=== PATIENT | female | born 1955 | race Caucasian/White ===

== ENCOUNTER 2021-07-19 20:35 | Inpatient (IN) | payer MEDICARE, OTHER ==
[~2021-07-19] VITALS: Ht 165.1 cm; Wt 69.4 kg
[2021-07-19] MEDS ORDERED: AMLO-212 PO (20:55)
[2021-07-19] MEDS ORDERED: CYCL5TAB PO (20:55)
[2021-07-19] MEDS ORDERED: LEVO25TA9 PO (20:55)
[2021-07-19] MEDS ORDERED: HYDR-3972 PO (20:55)
[2021-07-19] MEDS ORDERED: LORAZEPAM 1 MG TABLET PO PRN (22:45)
[2021-07-19] MEDS ORDERED: HYDROCODONE/APAP 5-325MG TABLET PO PRN (22:45)
[2021-07-19] MEDS ORDERED: HYDROCODONE/APAP 5-325MG TABLET ONE (22:57)
[2021-07-19] MEDS ORDERED: LORAZEPAM 1 MG TABLET ONE (22:57)
[2021-07-20 00:30] VITALS: BP 120/80
[2021-07-20] MEDS ORDERED: MAG HYDROX/AL HYDROX/SIMETH 30 ML LIQUID UDC PO PRN (00:30)
[2021-07-20] MEDS ORDERED: MAGNESIUM HYDROXIDE 30 ML LIQUID UDC PO PRN (00:30)
[2021-07-20] MEDS ORDERED: LORAZEPAM 0.5 MG TABLET PO PRN ×2 (00:30→04:30)
[2021-07-20] MEDS: ACETAMINOPHEN 325 MG TABLET PO PRN ×2 (01:17→21:18)
[2021-07-20] MEDS ORDERED: CYCLOBENZAPRINE HCL 10 MG TABLET PO PRN (09:00)
[2021-07-20 09:16] VITALS: BP 132/70
[2021-07-20] MEDS: LEVOTHYROXINE SODIUM 25 MCG TABLET PO SCH (10:42)
[2021-07-20] MEDS: AMLODIPINE 5 MG TABLET PO SCH (10:44)
[2021-07-20] MEDS: HYDROCODONE/APAP 5-325MG TABLET PO PRN (15:32)
[2021-07-20 17:08] VITALS: BP 131/79
[2021-07-20 20:00] VITALS: BP 125/80
[2021-07-20] MEDS: LORAZEPAM 1 MG TABLET PO PRN (21:18)
[2021-07-20] MEDS: risperiDONE 1 MG TABLET PO SCH (21:23)
[2021-07-21] MEDS: LEVOTHYROXINE SODIUM 25 MCG TABLET PO SCH (06:14)
[2021-07-21 07:48] VITALS: BP 132/75
[2021-07-21] MEDS: risperiDONE 1 MG TABLET PO SCH ×2 (08:45→20:24)
[2021-07-21] MEDS: DIVALPROEX 250 MG TABLET.DR PO SCH ×3 (08:45→16:14)
[2021-07-21] MEDS: AMLODIPINE 5 MG TABLET PO SCH (08:45)
[2021-07-21] MEDS: HYDROCODONE/APAP 5-325MG TABLET PO PRN ×2 (09:48→20:24)
[2021-07-21 16:17] VITALS: BP 122/71
[2021-07-21 20:00] VITALS: BP 134/69
[2021-07-21] MEDS: TEMAZEPAM 7.5 MG CAPSULE PO PRN (22:03)
[2021-07-22] MEDS: LEVOTHYROXINE SODIUM 25 MCG TABLET PO SCH (06:18)
[2021-07-22 07:43] VITALS: BP 121/68
[2021-07-22] MEDS: DIVALPROEX 250 MG TABLET.DR PO SCH ×3 (08:15→17:04)
[2021-07-22] MEDS: risperiDONE 1 MG TABLET PO SCH ×2 (08:16→20:09)
[2021-07-22] MEDS: AMLODIPINE 5 MG TABLET PO SCH (08:16)
[2021-07-22] MEDS: HYDROCODONE/APAP 5-325MG TABLET PO PRN ×2 (15:31→22:59)
[2021-07-22 16:16] VITALS: BP 115/66
[2021-07-22 20:10] VITALS: BP 118/64
[2021-07-23] MEDS: LEVOTHYROXINE SODIUM 25 MCG TABLET PO SCH (06:10)
[2021-07-23] MEDS: DIVALPROEX 250 MG TABLET.DR PO SCH ×3 (09:10→17:11)
[2021-07-23] MEDS: risperiDONE 1 MG TABLET PO SCH ×2 (09:10→20:05)
[2021-07-23] MEDS: AMLODIPINE 5 MG TABLET PO SCH (09:10)
[2021-07-23 09:26] VITALS: BP 148/89
[2021-07-23 16:00] VITALS: BP 123/84
[2021-07-23] MEDS: HYDROCODONE/APAP 5-325MG TABLET PO PRN ×2 (17:11→20:49)
[2021-07-23 20:00] VITALS: BP 142/70
[2021-07-24] MEDS: LEVOTHYROXINE SODIUM 25 MCG TABLET PO SCH (06:21)
[2021-07-24 07:30] VITALS: BP 133/94
[2021-07-24] MEDS: AMLODIPINE 5 MG TABLET PO SCH (08:43)
[2021-07-24] MEDS: DIVALPROEX 250 MG TABLET.DR PO SCH ×3 (08:43→16:48)
[2021-07-24] MEDS: risperiDONE 1 MG TABLET PO SCH ×2 (08:43→20:26)
[2021-07-24] MEDS: HYDROCODONE/APAP 5-325MG TABLET PO PRN (15:57)
[2021-07-24 16:00] VITALS: BP 136/82
[2021-07-24] MEDS: LORAZEPAM 1 MG TABLET PO PRN (20:26)
[2021-07-24] MEDS: ACETAMINOPHEN 325 MG TABLET PO PRN (20:26)
[2021-07-24 20:59] VITALS: BP 107/65
[2021-07-24] MEDS: TEMAZEPAM 7.5 MG CAPSULE PO PRN (21:22)
[2021-07-25] MEDS: LEVOTHYROXINE SODIUM 25 MCG TABLET PO SCH (05:52)
[2021-07-25 07:08] LABS: HEMATOCRIT 42.5 % (31.2-41.9); MEAN CORPUSCULAR HEMOGLOBIN 30.7 uug (24.7-32.8); MEAN CORPUSCULAR VOLUME 89.5 fL (75.5-95.3); PLATELET COUNT (AUTO) 253 K/uL (179-408)
[2021-07-25 07:30] VITALS: BP_SYST 124; BP_SYST 134; BP_DIAS 75; BP_DIAS 87
[2021-07-25 08:00] LABS: ALANINE AMINOTRANSFERASE 19 U/L (14-59); ALKALINE PHOSPHATASE 132 U/L (50-136); ASPARTATE AMINOTRANSFERASE < 5 U/L (15-37); BILIRUBIN,TOTAL 0.4 mg/dL (0.2-1.0); CARBON DIOXIDE 28 mmol/L (21-32); CHLORIDE 101 mmol/L (98-107); CREATININE 0.5 mg/dL (0.6-1.3); GLUCOSE 112 mg/dL (74-106); MAGNESIUM 2.4 mg/dL (1.8-2.4); PHOSPHOROUS 4.6 mg/dL (2.5-4.9); TOTAL PROTEIN, SERUM 7.9 g/dL (6.4-8.2); UREA NITROGEN, BLOOD 9 mg/dL (7-18)
[2021-07-25 08:02] LABS: THYROID STIMULATING HORMONE 2.362 mIU/mL (0.358-3.740)
[2021-07-25] MEDS: DIVALPROEX 250 MG TABLET.DR PO SCH ×2 (08:30→13:18)
[2021-07-25] MEDS: risperiDONE 1 MG TABLET PO SCH ×2 (08:30→20:12)
[2021-07-25] MEDS: AMLODIPINE 5 MG TABLET PO SCH (08:31)
[2021-07-25] MEDS: HYDROCODONE/APAP 5-325MG TABLET PO PRN ×2 (14:23→20:13)
[2021-07-25 20:00] VITALS: BP 100/58
[2021-07-25] MEDS: DIVALPROEX 500 MG TABLET.DR PO SCH (20:11)
[2021-07-25] MEDS: ATORVASTATIN 20 MG TABLET PO SCH (20:12)
[2021-07-25] MEDS: TEMAZEPAM 7.5 MG CAPSULE PO PRN (22:25)
[2021-07-26] MEDS: HYDROCODONE/APAP 5-325MG TABLET PO PRN ×3 (04:09→20:25)
[2021-07-26] MEDS: LEVOTHYROXINE SODIUM 25 MCG TABLET PO SCH (05:56)
[2021-07-26 07:47] VITALS: BP 127/68
[2021-07-26] MEDS: DIVALPROEX 250 MG TABLET.DR PO SCH ×2 (08:40→12:14)
[2021-07-26] MEDS: risperiDONE 1 MG TABLET PO SCH ×2 (08:41→20:14)
[2021-07-26] MEDS: AMLODIPINE 5 MG TABLET PO SCH (08:42)
[2021-07-26 17:40] VITALS: BP 128/81
[2021-07-26] MEDS: DIVALPROEX 500 MG TABLET.DR PO SCH (20:14)
[2021-07-26] MEDS: ATORVASTATIN 20 MG TABLET PO SCH (20:14)
[2021-07-26 20:22] VITALS: BP 117/75
[2021-07-26] MEDS: TEMAZEPAM 7.5 MG CAPSULE PO PRN (22:31)
[2021-07-27] MEDS: LEVOTHYROXINE SODIUM 25 MCG TABLET PO SCH (06:14)
[2021-07-27 07:30] VITALS: BP 139/87
[2021-07-27] MEDS: AMLODIPINE 5 MG TABLET PO SCH (08:44)
[2021-07-27] MEDS: DIVALPROEX 250 MG TABLET.DR PO SCH ×2 (08:44→12:43)
[2021-07-27] MEDS: risperiDONE 1 MG TABLET PO SCH ×2 (08:44→21:43)
[2021-07-27] MEDS: HYDROCODONE/APAP 5-325MG TABLET PO PRN ×2 (09:15→14:00)
[2021-07-27 16:00] VITALS: BP 136/80
[2021-07-27 20:00] VITALS: BP 100/57
[2021-07-27] MEDS: DIVALPROEX 500 MG TABLET.DR PO SCH (21:43)
[2021-07-27] MEDS: ATORVASTATIN 20 MG TABLET PO SCH (21:43)
[2021-07-27] MEDS: TEMAZEPAM 7.5 MG CAPSULE PO PRN (21:43)
[2021-07-28] MEDS: LEVOTHYROXINE SODIUM 25 MCG TABLET PO SCH (06:38)
[2021-07-28] MEDS: HYDROCODONE/APAP 5-325MG TABLET PO PRN ×3 (06:38→21:59)
[2021-07-28 08:12] VITALS: BP 102/73
[2021-07-28] MEDS: risperiDONE 1 MG TABLET PO SCH ×2 (08:44→20:52)
[2021-07-28] MEDS: DIVALPROEX 250 MG TABLET.DR PO SCH ×2 (08:44→13:45)
[2021-07-28] MEDS: AMLODIPINE 5 MG TABLET PO SCH (08:46)
[2021-07-28 17:01] VITALS: BP 133/80
[2021-07-28 20:14] VITALS: BP 146/81
[2021-07-28] MEDS: DIVALPROEX 500 MG TABLET.DR PO SCH (20:52)
[2021-07-28] MEDS: ATORVASTATIN 20 MG TABLET PO SCH (20:52)
[2021-07-29] MEDS: TEMAZEPAM 7.5 MG CAPSULE PO PRN ×2 (01:23→23:52)
[2021-07-29] MEDS: LEVOTHYROXINE SODIUM 25 MCG TABLET PO SCH (06:24)
[2021-07-29 08:04] VITALS: BP 138/86
[2021-07-29] MEDS: DIVALPROEX 250 MG TABLET.DR PO SCH ×2 (08:16→12:36)
[2021-07-29] MEDS: risperiDONE 1 MG TABLET PO SCH ×2 (08:16→20:52)
[2021-07-29] MEDS: AMLODIPINE 5 MG TABLET PO SCH (08:16)
[2021-07-29] MEDS: HYDROCODONE/APAP 5-325MG TABLET PO PRN ×2 (11:11→21:59)
[2021-07-29 16:11] VITALS: BP 141/82
[2021-07-29 20:18] VITALS: BP 117/62
[2021-07-29] MEDS: DIVALPROEX 500 MG TABLET.DR PO SCH (20:52)
[2021-07-29] MEDS: ATORVASTATIN 20 MG TABLET PO SCH (20:52)
[2021-07-30] MEDS: LEVOTHYROXINE SODIUM 25 MCG TABLET PO SCH (06:01)
[2021-07-30] MEDS: HYDROCODONE/APAP 5-325MG TABLET PO PRN ×4 (06:49→21:29)
[2021-07-30 08:00] VITALS: BP 141/80
[2021-07-30] MEDS: DIVALPROEX 250 MG TABLET.DR PO SCH ×2 (09:16→13:06)
[2021-07-30] MEDS: risperiDONE 1 MG TABLET PO SCH ×2 (09:16→20:37)
[2021-07-30] MEDS: AMLODIPINE 5 MG TABLET PO SCH (09:16)
[2021-07-30 16:48] VITALS: BP 105/61
[2021-07-30 20:17] VITALS: BP 125/76
[2021-07-30] MEDS: DIVALPROEX 500 MG TABLET.DR PO SCH (20:34)
[2021-07-30] MEDS: ATORVASTATIN 20 MG TABLET PO SCH (20:37)
[2021-07-30] MEDS: TEMAZEPAM 7.5 MG CAPSULE PO PRN (21:29)
[2021-07-31] MEDS: LORAZEPAM 1 MG TABLET PO PRN ×2 (05:22→15:09)
[2021-07-31] MEDS: ACETAMINOPHEN 325 MG TABLET PO PRN ×2 (05:22→20:25)
[2021-07-31] MEDS: LEVOTHYROXINE SODIUM 25 MCG TABLET PO SCH (06:17)
[2021-07-31 07:30] VITALS: BP 131/80
[2021-07-31] MEDS: DIVALPROEX 250 MG TABLET.DR PO SCH ×2 (08:45→13:52)
[2021-07-31] MEDS: AMLODIPINE 5 MG TABLET PO SCH (08:45)
[2021-07-31] MEDS: risperiDONE 1 MG TABLET PO SCH ×2 (08:48→20:25)
[2021-07-31 16:00] VITALS: BP 130/79
[2021-07-31] MEDS: HYDROCODONE/APAP 5-325MG TABLET PO PRN (17:20)
[2021-07-31 20:00] VITALS: BP 131/79
[2021-07-31] MEDS: DIVALPROEX 500 MG TABLET.DR PO SCH (20:25)
[2021-07-31] MEDS: ATORVASTATIN 20 MG TABLET PO SCH (20:25)
[2021-08-01] MEDS: TEMAZEPAM 7.5 MG CAPSULE PO PRN (02:35)
[2021-08-01] MEDS: HYDROCODONE/APAP 5-325MG TABLET PO PRN ×2 (03:56→09:01)
[2021-08-01] MEDS: LEVOTHYROXINE SODIUM 25 MCG TABLET PO SCH (05:43)
[2021-08-01 07:30] VITALS: BP 149/86
[2021-08-01 08:20] VITALS: BP 148/86
[2021-08-01] MEDS: DIVALPROEX 250 MG TABLET.DR PO SCH ×2 (08:20→12:17)
[2021-08-01] MEDS: risperiDONE 1 MG TABLET PO SCH (08:20)
[2021-08-01] MEDS: AMLODIPINE 5 MG TABLET PO SCH (08:20)
[2021-08-01] MEDS: LORAZEPAM 1 MG TABLET PO PRN (12:17)
== END 2021-08-01 13:30 | DRG 885 ==
LOC: ER 20:42 → GPS 22:00
PROVIDERS: ADMIT Psychiatry & Neurology Psychiatry; ATTEND Family Medicine
DX: F25.9 Schizoaffective disorder, unspecified (principal); E03.9 Hypothyroidism, unspecified; F15.10 Other stimulant abuse, uncomplicated; F41.9 Anxiety disorder, unspecified; F90.9 Attention-deficit hyperactivity disorder, unspecified type; Z59.02 Unsheltered homelessness; Z79.890 Hormone replacement therapy; Z86.16 Personal history of COVID-19; M17.11 Unilateral primary osteoarthritis, right knee; M16.11 Unilateral primary osteoarthritis, right hip; G89.29 Other chronic pain; I10 Essential (primary) hypertension; E78.5 Hyperlipidemia, unspecified; R00.0 Tachycardia, unspecified
CPT/HCPCS: 36415; 72170; 73502; 73700; 80164; 83735; 84100; 84443; 85025; 93005; 97161; A4663; J3490